=== PATIENT | female | born 1950 | race Caucasian/White ===

== ENCOUNTER 2022-03-06 17:59 | Inpatient (IN) | payer MEDICARE ==
[~2022-03-06] VITALS: Ht 160 cm; Wt 88.6 kg
[2022-03-06 19:10] VITALS: BP 88/52; PULSE 108; TEMP 101
[2022-03-06 19:26] LABS: HEMOGLOBIN 10.4 g/dl (12.5-16.0); MEAN CELL VOLUME 82 fl (80.0-100.0); MEAN CORPUSCULAR HEMOGLOBIN 28 pg (27-31); MEAN CORPUSCULAR HGB CONC 34 g/dl (33.0-37.0); MEAN PLATELET VOLUME 12.3 fl (7.4-10.4); PLATELET COUNT 73 K/mm3 (130-400); RED BLOOD COUNT 3.72 M/mm3 (4.10-5.30); REDCELL DISTRIBUTION WIDTH-CV 13.9 % (11.5-14.5)
[2022-03-06] MEDS ORDERED: CEPHALEXIN500 M1 PO (19:27)
[2022-03-06] MEDS ORDERED: VITAMIN C500 MG PO (19:27)
[2022-03-06] MEDS ORDERED: FERGON240 MG PO (19:27)
[2022-03-06] MEDS ORDERED: MASON NATURAL2000 IU PO (19:27)
[2022-03-06 19:28] LABS: INR 1.2 (0.8-3.0); PROTHROMBIN TIME 14.2 SECONDS (9.7-12.8)
[2022-03-06] MEDS ORDERED: MULTI VITAMINS1 TAB PO (19:28)
[2022-03-06] MEDS ORDERED: CALCIUM 600600 MG PO (19:28)
[2022-03-06 19:29] LABS: HEMATOCRIT 30.4 % (37.0-47.0)
[2022-03-06 19:36] LABS: MAGNESIUM 1.9 mg/dL (1.6-2.6); PHOSPHOROUS 1.3 mg/dL (2.3-4.7)
[2022-03-06 19:38] LABS: ALBUMIN 2.6 gm/dL (3.4-4.8); BILIRUBIN,TOTAL 5.8 mg/dL (0.2-1.2); CALCIUM 9.4 mg/dL (8.4-10.2); CREATININE, serum 1.12 mg/dL (0.57-1.11); POTASSIUM 3.1 mmol/L (3.5-4.5); TOTAL PROTEIN 5.5 gm/dL (6.2-8.1)
[2022-03-06 20:53] LABS: BAND 8 % (0-10); LYMPHOCYTE 4 % (20.0-51.0); METAMYELOCYTE 1 % (0-0); NEUTROPHILS 87 % (42.0-75.2)
[2022-03-06 20:56] LABS: PLATELET ESTIMATE DECREASED (NORMAL)
[2022-03-07] VITALS (13 sets, daily range): BP systolic 114–149; BP diastolic 65–84; PULSE 65–82; TEMP 97.5–98.3
[2022-03-07 05:54] LABS: BASO # 0.1 K/mm3 (0.0-0.2); BASO % 0.5 % (0.0-2.0); EOS % 0.3 % (0.0-4.0); GRAN # 10.3 K/mm3 (1.4-6.5); GRAN % 87.3 % (42.2-75.2); LYMPH # 0.6 K/mm3 (1.2-3.4); LYMPH % 5.4 % (20.0-51.0); MEAN CELL VOLUME 84 fl (80.0-100.0); MEAN CORPUSCULAR HGB CONC 33 g/dl (33.0-37.0); MEAN PLATELET VOLUME 12.2 fl (7.4-10.4); MONO # 0.7 K/mm3 (0.1-0.6); MONO % 5.7 % (1.7-9.3); PLATELET COUNT 74 K/mm3 (130-400); RED BLOOD COUNT 3.49 M/mm3 (4.10-5.30); REDCELL DISTRIBUTION WIDTH-CV 14.3 % (11.5-14.5)
[2022-03-07 06:00] LABS: HEMATOCRIT 29.4 % (37.0-47.0); HEMOGLOBIN 9.8 g/dl (12.5-16.0); MEAN CORPUSCULAR HEMOGLOBIN 28 pg (27-31)
[2022-03-07 06:13] LABS: ALBUMIN 2.4 gm/dL (3.4-4.8); BILIRUBIN,TOTAL 5.9 mg/dL (0.2-1.2); CALCIUM 9.1 mg/dL (8.4-10.2); CREATININE, serum 0.84 mg/dL (0.57-1.11); POTASSIUM 3.8 mmol/L (3.5-4.5); TOTAL PROTEIN 5.3 gm/dL (6.2-8.1)
--- NOTE | 2022-03-07 09:32 | NUR ---
Initial visit; Patient thankked Pillowcase Sewer for looking in on her and offering prayer and comfort and also thanked Pillowcase Sewer for keeping her in her prayers. Patient's also thanked [employer]er for visiting.
--- NOTE | 2022-03-07 13:07 | NUR ---
bridge gang worker met with patient to complete intake and discuss discharge plan. Patient reports that she lives at home with her Carlos([phone]) in [place]. Carlos present at bedside. Patient reports to being fully independent with her ADL's and does not utilize any DME to assist with mobility. Patient has no home oxygen needs. PCP is Dr. Jay Altamirano in [place] and utilizes [facility] in [place] for prescriptions. Patient reports that she does not have a DPOA-HC established but would like to create one. Form and education provided to the patient. Informed her that it can be completed before discharge. Patient is planning on returning home once medically ready. Discharge plan: Home
[2022-03-07 15:52] LABS: COLLECTION METHOD CLEAN CATCH
[2022-03-07 16:09] LABS: MUCOUS Present (NOT PRESENT); PH 5 (5-8); SQUAMOUS EPITHELIAL 0-2 /hpf (0-10); URINE APPEARANCE Hazy (CLEAR/HAZY); URINE BACTERIA None Seen /hpf (NONE SEEN); URINE BLOOD Negative (NEGATIVE); URINE COLOR Amber (YELLOW); URINE GLUCOSE Negative (NEGATIVE); URINE KETONE 1+ (NEGATIVE); URINE NITRATE Negative (NEGATIVE); URINE PROTEIN(semi-quant) 1+ (NEGATIVE); URINE UROBILINOGEN Negative (NEGATIVE)
--- NOTE | 2022-03-07 22:03 | NUR ---
Patient assessed around 1934. Denied pain at that time. Given PRN APAP as requested later on for discomfort. IV fluids running to peripheral IV to right forearm with IV ABX running per orders. Voices no questions, needs, or concerns at this time. In bed with call light within reach.
[2022-03-08 03:49] VITALS: BP 138/66; PULSE 71; TEMP 97.8
--- NOTE | 2022-03-08 06:07 | NUR ---
Patient continues on IV fluids per orders, as well as ABX. Voices no questions, needs, or concerns at this time. In bed with call light within reach.
[2022-03-08 07:21] LABS: BASO # 0.1 K/mm3 (0.0-0.2); BASO % 0.8 % (0.0-2.0); EOS # 0.1 K/mm3 (0.0-0.7); EOS % 1.5 % (0.0-4.0); GRAN # 6.6 K/mm3 (1.4-6.5); LYMPH # 0.8 K/mm3 (1.2-3.4); LYMPH % 8.7 % (20.0-51.0); MEAN CELL VOLUME 83 fl (80.0-100.0); MEAN CORPUSCULAR HGB CONC 34 g/dl (33.0-37.0); MONO # 1.1 K/mm3 (0.1-0.6); MONO % 12.1 % (1.7-9.3); PLATELET COUNT 85 K/mm3 (130-400); RED BLOOD COUNT 3.39 M/mm3 (4.10-5.30); REDCELL DISTRIBUTION WIDTH-CV 14.3 % (11.5-14.5)
[2022-03-08 07:23] LABS: ALBUMIN 2.2 gm/dL (3.4-4.8); BILIRUBIN,TOTAL 6.9 mg/dL (0.2-1.2); CALCIUM 8.9 mg/dL (8.4-10.2); CREATININE, serum 0.63 mg/dL (0.57-1.11); POTASSIUM 3.5 mmol/L (3.5-4.5); TOTAL PROTEIN 4.9 gm/dL (6.2-8.1)
[2022-03-08 07:24] LABS: HEMATOCRIT 28.1 % (37.0-47.0); HEMOGLOBIN 9.5 g/dl (12.5-16.0); MEAN CORPUSCULAR HEMOGLOBIN 28 pg (27-31)
[2022-03-08 08:00] VITALS: BP 136/75; PULSE 66; TEMP 97.9
--- NOTE | 2022-03-08 08:59 | NUR ---
PT AMBULATING AROUND ROOM. MORNING MEDICATIONS GIVEN. SHIFT ASSESSMENT COMPLETED. PT COMPALINS OF FEELING WORN OUT AND WEAK. PT URINATING WELL. DENIES ANY PAIN OR NEEDS AT THIS TIME. TOLERATING DIET. WILL CONTINUE TO MONITOR.
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
[2022-03-08 12:00] VITALS: BP 155/83; PULSE 70; TEMP 98
[2022-03-08 15:24] VITALS: BP 140/77; PULSE 68; TEMP 98.1
[2022-03-08 21:35] VITALS: BP 139/71; PULSE 72; TEMP 98.5
--- NOTE | 2022-03-08 22:26 | NUR ---
Patient assessed around 1999. Alert and oriented x 4, and able to make needs known. Denies pain and discomfort. Reports feeling much better today and tolerating food well today. Denies nausea and upset stomach. IV fluids and ABX continue per orders. Voices no questions, needs, or concerns at this time. In bed with call light within reach.
[2022-03-09] VITALS (8 sets, daily range): BP systolic 130–164; BP diastolic 58–90; PULSE 64–72; TEMP 97.6–98.6
--- NOTE | 2022-03-09 05:08 | NUR ---
Patient denies having pain and discomfort this shift. Continues on IV fluids and ABX. Voices no questions, needs, or concerns at this time. In bed with call light within reach.
[2022-03-09 07:08] LABS: MEAN CELL VOLUME 82 fl (80.0-100.0); MEAN CORPUSCULAR HGB CONC 34 g/dl (33.0-37.0); PLATELET COUNT 114 K/mm3 (130-400); RED BLOOD COUNT 3.42 M/mm3 (4.10-5.30); REDCELL DISTRIBUTION WIDTH-CV 14.1 % (11.5-14.5)
[2022-03-09 07:12] LABS: HEMATOCRIT 27.9 % (37.0-47.0); HEMOGLOBIN 9.6 g/dl (12.5-16.0); MEAN CORPUSCULAR HEMOGLOBIN 28 pg (27-31)
[2022-03-09 07:26] LABS: ALBUMIN 2.2 gm/dL (3.4-4.8); BILIRUBIN,TOTAL 4.5 mg/dL (0.2-1.2); CREATININE, serum 0.65 mg/dL (0.57-1.11); POTASSIUM 3.8 mmol/L (3.5-4.5); TOTAL PROTEIN 5.1 gm/dL (6.2-8.1)
[2022-03-09 07:37] LABS: EOSINOPHIL 2 % (0-4); LYMPHOCYTE 21 % (20.0-51.0); NEUTROPHILS 71 % (42.0-75.2); PLATELET ESTIMATE DECREASED (NORMAL)
--- NOTE | 2022-03-09 14:38 | NUR ---
Patient c/o feeling constipated. Staes she has taken one sennokot tab daily in the past with good results. Spoke with ANDREA Cole and new orders received.
--- NOTE | 2022-03-09 18:42 | NUR ---
Patient had an uneventful day. Showered this AM. Denied pain/nausea/shortness of breath. VS remained stable. NS@125ml/hr to right forearm IV infusing without difficulty. Denies current needs. Call light in reach. Will monitor.
--- NOTE | 2022-03-09 22:25 | NUR ---
Patient assessed around 1930. Alert and oriented, and able to make needs known. Denies having pain and discomfort at this time. Continues on IV ABX and fluids per oders. Voices no questions, needs, or concerns at this time. In bed with call light within reach.
[2022-03-10 03:08] VITALS: BP 149/71; PULSE 69; TEMP 98.3
--- NOTE | 2022-03-10 05:19 | NUR ---
Patient in bed with call light within reach. Has denied pain and discomfort. IV fuids and ABX continue per ordres.
[2022-03-10 07:00] VITALS: BP 155/79; PULSE 70; TEMP 98
--- NOTE | 2022-03-10 08:00 | NUR ---
Assessment complete. A&Ox4. Denies pain/nausea/shortness of breath. VS stable. NS@125ml/hr to left AC IV infusing without difficulty. Plan of care discussed for this shift to include meds, DC after culture and sensitivity is received/calling for questions/concerns. Verbalizes understanding. Call light in reach> Will monitor.
[2022-03-10 08:07] LABS: ALBUMIN 2.5 gm/dL (3.4-4.8); BILIRUBIN,TOTAL 3.1 mg/dL (0.2-1.2); CALCIUM 9.4 mg/dL (8.4-10.2); CREATININE, serum 0.65 mg/dL (0.57-1.11); TOTAL PROTEIN 5.6 gm/dL (6.2-8.1)
[2022-03-10] MEDS ORDERED: PROBIOTIC BLEN1 EACH PO ×2 (08:52→09:43)
[2022-03-10] MEDS ORDERED: AMOXICILLIN 8751 TAB PO ×2 (08:52→09:43)
--- NOTE | 2022-03-10 09:45 | NUR ---
Discharge instructions given both verbal and handwritten. Discussed f/u appt, s/s of infection, home medications and when to return to the ED. Verbalizes understanding/denies questions/concerns. INT to left [id number] at this time-cath intact. INT to right [id number] at th is time-cath intact. Copuy of discharge instructions given to include new home medications. Verbalizes understanding. Escorted off floor via wheelchair by ROLY Pastor and in stable condition.
== END 2022-03-10 10:45 | disposition home or self-care (01) | DRG 871 ==
LOC: MEDICAL 17:59
PROVIDERS: Internal Medicine; Internal Medicine Gastroenterology; Nurse Practitioner Family; ADMIT Student in an Organized Health Care Education/Training Program
PROC: 0FC98ZZ Extirpation of Matter from Common Bile Duct, Via Natural or Artificial Opening Endoscopic (ICD-10-PCS; principal; 2022-03-07 13:30)
DX: A41.9 Sepsis, unspecified organism (principal); I21.4 Non-ST elevation (NSTEMI) myocardial infarction; E87.1 Hypo-osmolality and hyponatremia; N17.9 Acute kidney failure, unspecified; K80.33 Calculus of bile duct with acute cholangitis with obstruction; R65.20 Severe sepsis without septic shock; E80.6 Other disorders of bilirubin metabolism; D64.9 Anemia, unspecified; D69.6 Thrombocytopenia, unspecified; E87.8 Other disorders of electrolyte and fluid balance, not elsewhere classified; E86.0 Dehydration; K83.8 Other specified diseases of biliary tract; E87.6 Hypokalemia; R82.81 Pyuria; R73.9 Hyperglycemia, unspecified; B96.1 Klebsiella pneumoniae [K. pneumoniae] as the cause of diseases classified elsewhere; E83.39 Other disorders of phosphorus metabolism; Z90.49 Acquired absence of other specified parts of digestive tract; Z98.51 Tubal ligation status; Z90.89 Acquired absence of other organs; Z72.89 Other problems related to lifestyle
CPT/HCPCS: 99232-AI; 99233-AI; 99239; C1769; J2543; J2704; J3010; J3480; J7030; J7040; Q9967